=== PATIENT | female | born 1960 | race Caucasian/White ===

== ENCOUNTER → 2017-02-14 | Outpatient (CLI) | payer OTHER ==
[~2017-02-14] MED LIST: ANAPROX DS550 MG PO; BREO ELLIPTA 11 EACH INH; DARVOCET N 1001 TAB PO; FLEXERIL10 MG PO; MOTRIN800 MG PO; NAPROSYN500 MG PO; OXYGEN NAS; PREDNICOT20 MG PO; PREDNISONE10 MG PO; PREMPRO 0.45 MG1 TAB PO; PROAIR HFA0.09 MG/AC IH; QVAR0.08 MG/AC INH; SEROQUEL25 MG PO; TEMAZEPAM15 M1 PO; VENTOLIN0.09 MG/AC IH; VICODIN 5-3001 EACH PO; VICODIN 5/500 505 MG PO; VOLTAREN1% TP; Vicodin 5/500 505 MG PO; WELLBUTRIN XL150 MG PO; XANAX0.5 MG PO; ZITHROMAX500 MG PO
[2017-02-14 10:38] LABS: BASO # 0.1 10*3/uL (0.0-0.1); BASO % 0.6 % (0.0-1.0); EOS # 0.3 10*3/uL (0.0-0.4); EOS % 2.9 % (1.0-4.0); HEMOGLOBIN 14.1 g/dl (12.0-16.0); LYMPH % 21.9 % (27.0-41.0); MEAN CELL VOLUME 98.6 fl (81.0-99.0); MEAN CORPUSCULAR HGB 32.3 pg (27.0-31.0); MEAN CORPUSCULAR HGB CONC 32.8 g/dl (33.0-37.0); MEAN PLATELET VOLUME 9.2 fl (9.6-12.3); MONO # 0.7 10*3/uL (0.1-1.0); MONO % 7.6 % (3.0-9.0); NEUT % 66.8 % (47.0-73.0); PLATELET COUNT AUTOMATED 293 10*3/uL (130-400); RED BLOOD COUNT 4.36 10*6/uL (4.10-5.10); WHITE BLOOD COUNT 8.9 10*3/uL (4.8-10.8)
[2017-02-14 11:01] LABS: BUN 14 mg/dl (7-24); CARBON DIOXIDE 30 mmol/L (21-32); CHLORIDE 106 mmol/L (98-107); EST GLOM FILT AFRICAN AMERICAN > 60 ml/min; GLUCOSE 91 mg/dL (65-99); SODIUM 140 mmol/L (136-145)
== END | disposition home or self-care (01) ==
LOC: LAB 09:20
PROVIDERS: Orthopaedic Surgery
DX: Z01.818 Encounter for other preprocedural examination (principal); G56.01 Carpal tunnel syndrome, right upper limb; J44.9 Chronic obstructive pulmonary disease, unspecified

== ENCOUNTER → 2017-02-20 | Day surgery (SDC) | payer OTHER ==
[~2017-02-20] VITALS: Ht 162.5 cm; Wt 93.0 kg
[~2017-02-20] MED LIST changes: +NORCO 5-325 TA1 EACH PO; +ZOFRAN4 MG PO
--- NOTE | ~2017-02-20 | O ---
[place], [place] OPERATIVE NOTE NAME: [facility]AP[facility] SKELTON [id number] UNIT #: [id number] ROOM: DOCTOR: TORIBIO LEXIE BIRTHDATE: [birth year] DOS: 02/20/2017 PREOPERATIVE DIAGNOSIS: Right carpal tunnel syndrome. POSTOPERATIVE DIAGNOSIS: Right carpal tunnel syndrome. PROCEDURE: Right carpal tunnel release. SURGEON: Dr. Ray. CREAM RIPENER: Roxy. ANESTHESIA: OUMAR Forte. INDICATIONS: The patient is a 56-year-old female with a history of pain and numbness and tingling in the right wrist and hand. The risks and benefits of the procedure were explained to the patient preoperatively. Preoperative labs and x-rays were obtained including a preoperative nerve conduction study. DESCRIPTION OF PROCEDURE: The right hand was marked in the preoperative region. The patient was brought to the operative suite. Timeout was performed. General anesthetic with LMA intubation was performed. Right upper extremity was prepped and draped in the usual orthopedic manner. Extremity was elevated and the tourniquet was inflated to 250 mmHg. The incision was planned between Santana's cardinal line and the distal wrist crease along the fourth ray. The area was injected with Marcaine 0.5% plain. The incision was made sharply with a scalpel. Subcutaneous tissue was spread down to the level of the volar carpal ligament. Under loupe magnification, the volar carpal ligament was divided in a longitudinal fashion. Self-retraining retractors were utilized. The median nerve was identified and followed both proximally and distally. Any further entrapment was released with Clarkia scissors. The floor of the carpal canal was palpated. There was no gross bony abnormalities. There was noted to be a slight hourglass configuration of the median nerve and significant tenosynovitis about the flexor tendons. When no further entrapment was noted, the area was copiously irrigated with normal saline. The wound was closed with 4-0 Prolene in a horizontal mattress suture fashion. The incision was again injected with Marcaine 0.5% plain. Xeroform, 4 x 4's, cast padding and a small volar wrist splint and an Trung bandage were applied. The tourniquet was released. The anesthetic was reversed. The patient was extubated and taken to recovery room in satisfactory condition. Sponge and needle count correct. ESTIMATED BLOOD LOSS: None. DRAINS: None. SPECIMENS: None. PACKING: None. [place], [place] OPERATIVE NOTE NAME: SWAPNA SKELTON UNIT #: [id number] ROOM: DOCTOR: LEXIE RAY DO BIRTHDATE: [birth year] COMPLICATIONS: None. LEXIE RAY DO CM:OPRECORD:OPERATIVE NOTE 6 LEXIE RAY DO 02/20/1749 interface
[2017-02-20 07:00] VITALS: BP 140/69
[2017-02-20 08:25] VITALS: BP 107/38
[2017-02-20 08:40] VITALS: BP 102/43
[2017-02-20 08:55] VITALS: BP 100/52
[2017-02-20 09:10] VITALS: BP 101/50
[2017-02-20 09:25] VITALS: BP 105/55
== END | disposition home or self-care (01) ==
LOC: SDC 02-14 09:30
DX: G56.01 Carpal tunnel syndrome, right upper limb (principal); I25.2 Old myocardial infarction; J45.909 Unspecified asthma, uncomplicated; J43.9 Emphysema, unspecified; F41.9 Anxiety disorder, unspecified; F32.9 Major depressive disorder, single episode, unspecified; Z87.01 Personal history of pneumonia (recurrent); Z87.891 Personal history of nicotine dependence; Z82.49 Family history of ischemic heart disease and other diseases of the circulatory system

== ENCOUNTER 2017-03-18 18:11 | Emergency (ER) | payer OTHER ==
[~2017-03-18] VITALS: Ht 162.5 cm; Wt 90.7 kg
[2017-03-18 18:21] VITALS: BP 134/97
[2017-03-18] MEDS ORDERED: CEPHALEXIN500 M1 PO (19:25)
== END 2017-03-18 19:27 | disposition home or self-care (01) ==
LOC: ED 18:11
DX: S61.411A Laceration without foreign body of right hand, initial encounter (principal); F17.200 Nicotine dependence, unspecified, uncomplicated; Z29.12 Encounter for prophylactic antivenin; Z79.899 Other long term (current) drug therapy; W25.XXXA Contact with sharp glass, initial encounter; Y93.89 Activity, other specified; Y92.89 Other specified places as the place of occurrence of the external cause; Y99.8 Other external cause status

== ENCOUNTER → 2017-04-09 | Outpatient (CLI) | payer OTHER ==
[~2017-04-09] MED LIST changes: +CEPHALEXIN500 M1 PO
== END | disposition home or self-care (01) ==
LOC: RAD 10:39
DX: M25.551 Pain in right hip (principal); M25.552 Pain in left hip; M54.42 Lumbago with sciatica, left side; M54.41 Lumbago with sciatica, right side; M53.3 Sacrococcygeal disorders, not elsewhere classified

== ENCOUNTER → 2017-05-13 | Outpatient (CLI) | payer OTHER | END | disposition home or self-care (01) | LOC: MRI 14:56 | DX: M48.02 Spinal stenosis, cervical region (principal); M47.896 Other spondylosis, lumbar region ==

== ENCOUNTER → 2019-03-18 | Outpatient (CLI) | payer OTHER ==
[2019-03-18 14:12] LABS: HEMATOCRIT 43.3 % (37.0-47.0); HEMOGLOBIN 13.6 g/dl (12.0-16.0); MEAN CELL VOLUME 101.9 fl (81.0-99.0); MEAN CORPUSCULAR HGB CONC 31.4 g/dl (33.0-37.0); MEAN PLATELET VOLUME 8.8 fl (9.6-12.3); RED BLOOD COUNT 4.25 10*6/uL (4.10-5.10); RED CELL DISTRI WIDTH 13.2 % (0-14.5); WHITE BLOOD COUNT 10.1 10*3/uL (4.8-10.8)
[2019-03-18 14:42] LABS: ALBUMIN 3.4 gm/dl (3.1-4.5); ALKALINE PHOSPHATASE 85 U/L (45-117); BUN 10 mg/dl (7-24); CHLORIDE 99 mmol/L (98-107); CHOLESTEROL 186 mg/dL (<200); CREATININE 1.01 mg/dL (0.55-1.02); HDL CHOLESTEROL 42 mg/dl (40-60); LDL CHOLESTEROL 121 mg/dL (9-159); SGOT/AST 21 IU/L (3-35); SGPT/ALT 24 U/L (12-78); SODIUM 138 mmol/L (136-145); TOTAL PROTEIN 8.8 gm/dL (6.4-8.2); TRIGLYCERIDES 117 mg/dl (<150); VLDL CHOLESTEROL 23 mg/dL (6-40)
== END | disposition home or self-care (01) ==
LOC: LAB 13:50
PROVIDERS: Physician Assistant
DX: E87.0 Hyperosmolality and hypernatremia (principal); F31.11 Bipolar disorder, current episode manic without psychotic features, mild; J44.9 Chronic obstructive pulmonary disease, unspecified; M16.12 Unilateral primary osteoarthritis, left hip

== ENCOUNTER 2022-05-22 10:23 | Inpatient (IN) | payer OTHER ==
[~2022-05-22] VITALS: Ht 160 cm; Wt 130.6 kg
[2022-05-22 10:27] VITALS: BP 126/70
[2022-05-22 10:46] LABS: ABG BASE EXCESS 6.4 mmol/L (-2.0-2.0); ARTERIAL BLOOD GAS PH 7.283 (7.35-7.45); ARTERIAL BLOOD GAS PO2 153.3 (80-90)
[2022-05-22 10:59] LABS: BASO # 0.1 10*3/uL (0.0-0.1); BASO % 0.4 % (0.0-1.0); EOS # 0.2 10*3/uL (0.0-0.4); EOS % 1.4 % (1.0-4.0); LYMPH % 7.1 % (27.0-41.0); MEAN CELL VOLUME 104.6 fl (81.0-99.0); MEAN CORPUSCULAR HGB 31.6 pg (27.0-31.0); MEAN CORPUSCULAR HGB CONC 30.3 g/dl (33.0-37.0); MEAN PLATELET VOLUME 8.3 fl (9.6-12.3); MONO # 0.6 10*3/uL (0.1-1.0); MONO % 4.4 % (3.0-9.0); NEUT # 12.1 10*3/uL (2.3-7.9); NEUT % 86.4 % (47.0-73.0); PLATELET COUNT AUTOMATED 252 10*3/uL (130-400); RED BLOOD COUNT 3.73 10*6/uL (4.10-5.10); RED CELL DISTRI WIDTH 14.1 % (0-14.5)
[2022-05-22 11:17] LABS: ALKALINE PHOSPHATASE 82 U/L (45-117); BUN 7 mg/dl (7-24); CHLORIDE 94 mmol/L (98-107); CREATININE 0.68 mg/dL (0.55-1.02); POTASSIUM 4.2 mmol/L (3.5-5.1); SGOT/AST 11 IU/L (3-35); SGPT/ALT 19 U/L (12-78); SODIUM 135 mmol/L (136-145); TOTAL PROTEIN 8.2 gm/dL (6.4-8.2)
[2022-05-22 11:25] VITALS: BP 155/88
[2022-05-22 14:47] VITALS: BP 102/42
[2022-05-22 15:37] VITALS: BP 126/69
[2022-05-22 15:55] LABS: BILIRUBIN 2+ (Negative); BLOOD Negative (Negative); CLARITY Cloudy (Clear); COLOR Dark Yellow (Yellow); GLUCOSE Negative (Negative); KETONE 1+ (Negative); LEUKO ESTERASE Trace (Negative); NITRITE Negative (Negative); PH 5.5 (4.5-8.0)
[2022-05-22 16:03] LABS: BACTERIA 1+; MUCOUS 2+
[2022-05-22 16:04] LABS: FINE GRANULAR CAST 0-2
[2022-05-22] MEDS ORDERED: LOPRESSOR25 MG PO (17:27)
[2022-05-22] MEDS ORDERED: SYMB160 INH (17:28)
[2022-05-22] MEDS ORDERED: SPIRIVA -- 3018 MCG INH (17:28)
[2022-05-22] MEDS ORDERED: BUPRENORPHINE-1 EAC2 SL (17:30)
[2022-05-22 19:43] LABS: ABG BASE EXCESS 4.7 mmol/L (-2.0-2.0); ARTERIAL BLOOD GAS PH 7.275 (7.35-7.45)
[2022-05-22 20:00] VITALS: BP 158/69
[2022-05-23] VITALS: BP 114/58
[2022-05-23 04:00] VITALS: BP 122/69
[2022-05-23 05:44] LABS: BUN 9 mg/dl (7-24); CHLORIDE 97 mmol/L (98-107); CREATININE 0.61 mg/dL (0.55-1.02); POTASSIUM 4.5 mmol/L (3.5-5.1); SGOT/AST 14 IU/L (3-35); SGPT/ALT 17 U/L (12-78); SODIUM 138 mmol/L (136-145)
[2022-05-23 05:46] LABS: ALKALINE PHOSPHATASE 76 U/L (45-117); TOTAL PROTEIN 7.3 gm/dL (6.4-8.2)
[2022-05-23 06:16] LABS: HEMATOCRIT 35.2 % (37.0-47.0); MEAN CELL VOLUME 103.8 fl (81.0-99.0); MEAN CORPUSCULAR HGB 31.6 pg (27.0-31.0); MEAN CORPUSCULAR HGB CONC 30.4 g/dl (33.0-37.0); MEAN PLATELET VOLUME 9.2 fl (9.6-12.3); PLATELET COUNT AUTOMATED 257 10*3/uL (130-400); RED BLOOD COUNT 3.39 10*6/uL (4.10-5.10); RED CELL DISTRI WIDTH 13.8 % (0-14.5); WHITE BLOOD COUNT 16.5 10*3/uL (4.8-10.8)
[2022-05-23 06:21] LABS: MANUAL DIFF REFLEX YES
[2022-05-23 06:59] LABS: PLATELET SUFFICIENCY NORMAL (NORMAL); POLYCHROMASIA SLIGHT; STOMATOCYTE FEW; TOTAL CELLS COUNTED 100 #CELLS; TOXIC GRANULATION SLIGHT; VACUOLATION OF NEUTROPHILS SLIGHT
[2022-05-23 07:56] LABS: ABG BASE EXCESS 12.6 mmol/L (-2.0-2.0); ARTERIAL BLOOD GAS PH 7.289 (7.35-7.45); ARTERIAL BLOOD GAS PO2 66.6 (80-90)
[2022-05-23 08:00] VITALS: BP 123/75
[2022-05-23 12:00] VITALS: BP 114/70
[2022-05-23 16:00] VITALS: BP 111/55
[2022-05-23 20:00] VITALS: BP 129/98
[2022-05-24] VITALS: BP 91/53
[2022-05-24 04:00] VITALS: BP 104/64
[2022-05-24 05:43] LABS: BUN 14 mg/dl (7-24); CHLORIDE 99 mmol/L (98-107); CREATININE 0.59 mg/dL (0.55-1.02); POTASSIUM 4.8 mmol/L (3.5-5.1); SODIUM 140 mmol/L (136-145)
[2022-05-24 06:22] LABS: HEMATOCRIT 34.5 % (37.0-47.0); MEAN CELL VOLUME 104.9 fl (81.0-99.0); MEAN CORPUSCULAR HGB 31.3 pg (27.0-31.0); MEAN CORPUSCULAR HGB CONC 29.9 g/dl (33.0-37.0); MEAN PLATELET VOLUME 8.8 fl (9.6-12.3); PLATELET COUNT AUTOMATED 275 10*3/uL (130-400); RED BLOOD COUNT 3.29 10*6/uL (4.10-5.10); RED CELL DISTRI WIDTH 13.6 % (0-14.5)
[2022-05-24 06:30] LABS: MANUAL DIFF REFLEX YES
[2022-05-24 07:17] LABS: TOTAL CELLS COUNTED 100 #CELLS
[2022-05-24 07:18] LABS: PLATELET SUFFICIENCY NORMAL (NORMAL); POLYCHROMASIA SLIGHT; TOXIC GRANULATION SLIGHT; VACUOLATION OF NEUTROPHILS SLIGHT
[2022-05-24 07:43] LABS: ABG BASE EXCESS 9.8 mmol/L (-2.0-2.0); ARTERIAL BLOOD GAS PH 7.352 (7.35-7.45); ARTERIAL BLOOD GAS PO2 73.4 (80-90)
[2022-05-24 08:00] VITALS: BP 116/59
[2022-05-24 12:00] VITALS: BP 121/65
[2022-05-24 16:00] VITALS: BP 137/78
[2022-05-24 20:00] VITALS: BP 134/74
[2022-05-25] VITALS: BP 155/61
[2022-05-25 04:00] VITALS: BP 153/79
[2022-05-25 08:00] VITALS: BP 125/71
[2022-05-25 12:00] VITALS: BP 124/67
[2022-05-25 16:00] VITALS: BP 133/66
[2022-05-25 20:00] VITALS: BP 159/85
[2022-05-26] VITALS: BP 132/64
[2022-05-26 04:00] VITALS: BP 133/72
[2022-05-26 06:12] LABS: BASO % 0.3 % (0.0-1.0); HEMATOCRIT 37.4 % (37.0-47.0); LYMPH # 0.6 10*3/uL (1.3-4.4); MEAN CELL VOLUME 103.3 fl (81.0-99.0); MEAN CORPUSCULAR HGB 31.2 pg (27.0-31.0); MEAN CORPUSCULAR HGB CONC 30.2 g/dl (33.0-37.0); MEAN PLATELET VOLUME 8.7 fl (9.6-12.3); MONO # 0.3 10*3/uL (0.1-1.0); MONO % 3.9 % (3.0-9.0); NEUT # 6.8 10*3/uL (2.3-7.9); PLATELET COUNT AUTOMATED 282 10*3/uL (130-400); RED BLOOD COUNT 3.62 10*6/uL (4.10-5.10); RED CELL DISTRI WIDTH 13.6 % (0-14.5); WHITE BLOOD COUNT 7.8 10*3/uL (4.8-10.8)
[2022-05-26 06:22] LABS: BUN 17 mg/dl (7-24); CHLORIDE 95 mmol/L (98-107); CREATININE 0.63 mg/dL (0.55-1.02); POTASSIUM 4.6 mmol/L (3.5-5.1); SODIUM 139 mmol/L (136-145)
[2022-05-26 08:00] VITALS: BP 149/87
[2022-05-26 08:14] LABS: ABG BASE EXCESS 15.1 mmol/L (-2.0-2.0); ARTERIAL BLOOD GAS PH 7.348 (7.35-7.45); ARTERIAL BLOOD GAS PO2 91.7 (80-90)
[2022-05-26 12:00] VITALS: BP 117/75
[2022-05-26 16:00] VITALS: BP 142/84
[2022-05-26 20:00] VITALS: BP 122/83
[2022-05-27] VITALS: BP 124/73
[2022-05-27 04:00] VITALS: BP 148/74
[2022-05-27 04:38] LABS: BASO % 0.2 % (0.0-1.0); HEMATOCRIT 37.8 % (37.0-47.0); LYMPH # 0.6 10*3/uL (1.3-4.4); LYMPH % 6.4 % (27.0-41.0); MEAN CELL VOLUME 104.4 fl (81.0-99.0); MEAN CORPUSCULAR HGB 31.8 pg (27.0-31.0); MEAN CORPUSCULAR HGB CONC 30.4 g/dl (33.0-37.0); MEAN PLATELET VOLUME 8.3 fl (9.6-12.3); MONO # 0.3 10*3/uL (0.1-1.0); MONO % 3.4 % (3.0-9.0); NEUT # 7.9 10*3/uL (2.3-7.9); NEUT % 88.8 % (47.0-73.0); PLATELET COUNT AUTOMATED 222 10*3/uL (130-400); RED BLOOD COUNT 3.62 10*6/uL (4.10-5.10); RED CELL DISTRI WIDTH 14.2 % (0-14.5); WHITE BLOOD COUNT 8.9 10*3/uL (4.8-10.8)
[2022-05-27 04:51] LABS: BUN 20 mg/dl (7-24); CHLORIDE 97 mmol/L (98-107); CREATININE 0.65 mg/dL (0.55-1.02); POTASSIUM 4.8 mmol/L (3.5-5.1); SODIUM 139 mmol/L (136-145)
[2022-05-27 07:44] LABS: ABG BASE EXCESS 7.1 mmol/L (-2.0-2.0); ARTERIAL BLOOD GAS PH 7.287 (7.35-7.45); ARTERIAL BLOOD GAS PO2 85.7 (80-90)
[2022-05-27 08:00] VITALS: BP 117/89
[2022-05-27 12:00] VITALS: BP 127/79
[2022-05-27 16:00] VITALS: BP 136/69
[2022-05-27 20:00] VITALS: BP 147/65
[2022-05-28] VITALS: BP 107/52
[2022-05-28 06:15] LABS: BASO % 0.2 % (0.0-1.0); EOS % 0.3 % (1.0-4.0); HEMATOCRIT 38.9 % (37.0-47.0); LYMPH # 1.5 10*3/uL (1.3-4.4); LYMPH % 13.5 % (27.0-41.0); MEAN CELL VOLUME 104.6 fl (81.0-99.0); MEAN CORPUSCULAR HGB CONC 29.8 g/dl (33.0-37.0); MEAN PLATELET VOLUME 8.7 fl (9.6-12.3); MONO # 0.9 10*3/uL (0.1-1.0); MONO % 8.4 % (3.0-9.0); NEUT # 8.4 10*3/uL (2.3-7.9); NEUT % 76.7 % (47.0-73.0); PLATELET COUNT AUTOMATED 226 10*3/uL (130-400); RED BLOOD COUNT 3.72 10*6/uL (4.10-5.10); RED CELL DISTRI WIDTH 13.7 % (0-14.5); WHITE BLOOD COUNT 10.9 10*3/uL (4.8-10.8)
[2022-05-28 06:33] LABS: BUN 25 mg/dl (7-24); CHLORIDE 98 mmol/L (98-107); CREATININE 0.75 mg/dL (0.55-1.02); SODIUM 139 mmol/L (136-145)
[2022-05-28 06:35] LABS: POTASSIUM 3.8 mmol/L (3.5-5.1)
[2022-05-28 06:51] LABS: MEAN CORPUSCULAR HGB 31.2 pg (27.0-31.0)
[2022-05-28 08:00] VITALS: BP 107/55
[2022-05-28 08:08] LABS: ABG BASE EXCESS 8.5 mmol/L (-2.0-2.0); ARTERIAL BLOOD GAS PH 7.277 (7.35-7.45); ARTERIAL BLOOD GAS PO2 63.9 (80-90)
[2022-05-28 12:00] VITALS: BP 123/94
[2022-05-28 15:30] LABS: ABG BASE EXCESS 7.6 mmol/L (-2.0-2.0); ARTERIAL BLOOD GAS PH 7.241 (7.35-7.45); ARTERIAL BLOOD GAS PO2 89.2 (80-90)
[2022-05-28 16:00] VITALS: BP 114/59
[2022-05-28 20:00] VITALS: BP 124/65
[2022-05-29] VITALS: BP 124/58
[2022-05-29 06:32] LABS: BASO % 0.1 % (0.0-1.0); EOS # 0.1 10*3/uL (0.0-0.4); EOS % 0.4 % (1.0-4.0); HEMATOCRIT 40.1 % (37.0-47.0); LYMPH # 1.4 10*3/uL (1.3-4.4); LYMPH % 10.5 % (27.0-41.0); MEAN CELL VOLUME 105.2 fl (81.0-99.0); MEAN CORPUSCULAR HGB 31.2 pg (27.0-31.0); MEAN CORPUSCULAR HGB CONC 29.7 g/dl (33.0-37.0); MEAN PLATELET VOLUME 8.9 fl (9.6-12.3); MONO # 0.8 10*3/uL (0.1-1.0); MONO % 6.2 % (3.0-9.0); NEUT # 11.1 10*3/uL (2.3-7.9); PLATELET COUNT AUTOMATED 214 10*3/uL (130-400); RED BLOOD COUNT 3.81 10*6/uL (4.10-5.10); RED CELL DISTRI WIDTH 13.8 % (0-14.5); WHITE BLOOD COUNT 13.6 10*3/uL (4.8-10.8)
[2022-05-29 06:46] LABS: BUN 21 mg/dl (7-24); CHLORIDE 99 mmol/L (98-107); POTASSIUM 4.3 mmol/L (3.5-5.1); SODIUM 140 mmol/L (136-145)
[2022-05-29 08:00] VITALS: BP 118/60
[2022-05-29 09:56] LABS: ABG BASE EXCESS 9.2 mmol/L (-2.0-2.0); ARTERIAL BLOOD GAS PH 7.279 (7.35-7.45); ARTERIAL BLOOD GAS PO2 64.4 (80-90)
[2022-05-29 12:00] VITALS: BP 120/55
[2022-05-29 16:00] VITALS: BP 122/49
[2022-05-29 20:00] VITALS: BP 123/50
[2022-05-30] VITALS: BP 116/62
[2022-05-30 06:15] LABS: HEMATOCRIT 37.4 % (37.0-47.0); MEAN CELL VOLUME 102.5 fl (81.0-99.0); MEAN CORPUSCULAR HGB 31.2 pg (27.0-31.0); MEAN CORPUSCULAR HGB CONC 30.5 g/dl (33.0-37.0); MEAN PLATELET VOLUME 9.3 fl (9.6-12.3); PLATELET COUNT AUTOMATED 206 10*3/uL (130-400); RED BLOOD COUNT 3.65 10*6/uL (4.10-5.10); RED CELL DISTRI WIDTH 13.7 % (0-14.5); WHITE BLOOD COUNT 12.4 10*3/uL (4.8-10.8)
[2022-05-30 06:19] LABS: MANUAL DIFF REFLEX YES
[2022-05-30 06:35] LABS: BUN 18 mg/dl (7-24); CHLORIDE 97 mmol/L (98-107); CREATININE 0.67 mg/dL (0.55-1.02); POTASSIUM 4.5 mmol/L (3.5-5.1); SODIUM 136 mmol/L (136-145)
[2022-05-30 06:54] LABS: OVALOCYTES FEW; PLATELET SUFFICIENCY NORMAL (NORMAL); POLYCHROMASIA SLIGHT; STOMATOCYTE FEW; TOTAL CELLS COUNTED 100 #CELLS; TOXIC GRANULATION SLIGHT
[2022-05-30 08:00] VITALS: BP 123/41
[2022-05-30 12:00] VITALS: BP 123/58
[2022-05-30 16:00] VITALS: BP 137/65
[2022-05-30 20:00] VITALS: BP 148/78
[2022-05-31] VITALS: BP 114/48
[2022-05-31 00:45] VITALS: BP 114/48
[2022-05-31 06:16] LABS: BASO % 0.1 % (0.0-1.0); HEMATOCRIT 38.9 % (37.0-47.0); LYMPH # 0.5 10*3/uL (1.3-4.4); LYMPH % 4.7 % (27.0-41.0); MEAN CELL VOLUME 102.6 fl (81.0-99.0); MEAN CORPUSCULAR HGB 31.4 pg (27.0-31.0); MEAN CORPUSCULAR HGB CONC 30.6 g/dl (33.0-37.0); MEAN PLATELET VOLUME 9.3 fl (9.6-12.3); MONO # 0.5 10*3/uL (0.1-1.0); MONO % 5.3 % (3.0-9.0); NEUT # 9.1 10*3/uL (2.3-7.9); NEUT % 88.9 % (47.0-73.0); PLATELET COUNT AUTOMATED 202 10*3/uL (130-400); RED BLOOD COUNT 3.79 10*6/uL (4.10-5.10); RED CELL DISTRI WIDTH 13.8 % (0-14.5); WHITE BLOOD COUNT 10.2 10*3/uL (4.8-10.8)
[2022-05-31 06:28] LABS: BUN 20 mg/dl (7-24); CHLORIDE 98 mmol/L (98-107); CREATININE 0.67 mg/dL (0.55-1.02); SODIUM 137 mmol/L (136-145)
[2022-05-31 08:00] VITALS: BP 127/50
[2022-05-31 12:00] VITALS: BP 163/84
[2022-05-31 16:00] VITALS: BP 133/61
[2022-05-31 20:00] VITALS: BP 134/77
[2022-06-01] VITALS: BP 125/78
[2022-06-01 08:00] VITALS: BP 139/78
[2022-06-01 12:00] VITALS: BP 120/65
[2022-06-01 16:00] VITALS: BP 121/58
[2022-06-01 20:00] VITALS: BP 134/65
[2022-06-02] VITALS: BP 139/66
[2022-06-02 06:16] LABS: HEMATOCRIT 38.9 % (37.0-47.0); MEAN CELL VOLUME 102.4 fl (81.0-99.0); MEAN CORPUSCULAR HGB 31.1 pg (27.0-31.0); MEAN CORPUSCULAR HGB CONC 30.3 g/dl (33.0-37.0); MEAN PLATELET VOLUME 9.4 fl (9.6-12.3); PLATELET COUNT AUTOMATED 220 10*3/uL (130-400); RED CELL DISTRI WIDTH 13.7 % (0-14.5); WHITE BLOOD COUNT 11.3 10*3/uL (4.8-10.8)
[2022-06-02 06:17] LABS: MANUAL DIFF REFLEX YES
[2022-06-02 06:18] LABS: BUN 16 mg/dl (7-24); CHLORIDE 97 mmol/L (98-107); CREATININE 0.67 mg/dL (0.55-1.02); POTASSIUM 4.2 mmol/L (3.5-5.1); SODIUM 140 mmol/L (136-145)
[2022-06-02 07:00] LABS: PLATELET SUFFICIENCY NORMAL (NORMAL); POLYCHROMASIA SLIGHT; STOMATOCYTE FEW; TOTAL CELLS COUNTED 100 #CELLS; TOXIC GRANULATION SLIGHT
[2022-06-02 08:00] VITALS: BP 133/56
[2022-06-02 08:58] LABS: ABG BASE EXCESS 10.1 mmol/L (-2.0-2.0); ARTERIAL BLOOD GAS PH 7.374 (7.35-7.45); ARTERIAL BLOOD GAS PO2 57.3 (80-90)
[2022-06-02 12:00] VITALS: BP 136/54
[2022-06-02 16:00] VITALS: BP 155/66
[2022-06-02 20:00] VITALS: BP 146/56
[2022-06-03] VITALS: BP 126/64
[2022-06-03 07:29] LABS: BASO % 0.2 % (0.0-1.0); HEMATOCRIT 42.3 % (37.0-47.0); LYMPH # 0.9 10*3/uL (1.3-4.4); LYMPH % 7.3 % (27.0-41.0); MEAN CELL VOLUME 102.2 fl (81.0-99.0); MEAN CORPUSCULAR HGB 31.4 pg (27.0-31.0); MEAN CORPUSCULAR HGB CONC 30.7 g/dl (33.0-37.0); MONO # 0.9 10*3/uL (0.1-1.0); MONO % 6.9 % (3.0-9.0); NEUT # 10.9 10*3/uL (2.3-7.9); PLATELET COUNT AUTOMATED 262 10*3/uL (130-400); RED BLOOD COUNT 4.14 10*6/uL (4.10-5.10); RED CELL DISTRI WIDTH 13.8 % (0-14.5); WHITE BLOOD COUNT 12.8 10*3/uL (4.8-10.8)
[2022-06-03 07:45] LABS: BUN 14 mg/dl (7-24); CHLORIDE 97 mmol/L (98-107); CREATININE 0.73 mg/dL (0.55-1.02); POTASSIUM 3.9 mmol/L (3.5-5.1); SODIUM 137 mmol/L (136-145)
[2022-06-03 08:00] VITALS: BP 143/73
[2022-06-03 12:00] VITALS: BP 134/53
[2022-06-03 16:00] VITALS: BP 127/48
[2022-06-03 20:00] VITALS: BP 168/77
[2022-06-04] VITALS: BP 135/67
[2022-06-04 06:49] LABS: BASO % 0.1 % (0.0-1.0); EOS % 0.2 % (1.0-4.0); HEMATOCRIT 40.8 % (37.0-47.0); LYMPH # 1.5 10*3/uL (1.3-4.4); LYMPH % 13.7 % (27.0-41.0); MEAN CELL VOLUME 104.6 fl (81.0-99.0); MEAN CORPUSCULAR HGB CONC 29.7 g/dl (33.0-37.0); MONO % 9.3 % (3.0-9.0); NEUT # 8.5 10*3/uL (2.3-7.9); NEUT % 75.9 % (47.0-73.0); PLATELET COUNT AUTOMATED 236 10*3/uL (130-400); RED CELL DISTRI WIDTH 13.9 % (0-14.5); WHITE BLOOD COUNT 11.1 10*3/uL (4.8-10.8)
[2022-06-04 07:00] LABS: BUN 15 mg/dl (7-24); CHLORIDE 97 mmol/L (98-107); CREATININE 0.71 mg/dL (0.55-1.02); POTASSIUM 3.8 mmol/L (3.5-5.1); SODIUM 142 mmol/L (136-145)
[2022-06-04 08:00] VITALS: BP 116/63
[2022-06-04 12:00] VITALS: BP 128/58
[2022-06-04 16:00] VITALS: BP 107/56
[2022-06-04 20:00] VITALS: BP 139/73
[2022-06-05] VITALS: BP 95/42
[2022-06-05 00:45] VITALS: BP 114/48
[2022-06-05 06:02] LABS: BUN 15 mg/dl (7-24); CHLORIDE 100 mmol/L (98-107); CREATININE 0.61 mg/dL (0.55-1.02); POTASSIUM 4.5 mmol/L (3.5-5.1); SODIUM 140 mmol/L (136-145)
[2022-06-05 06:47] LABS: BASO % 0.1 % (0.0-1.0); EOS # 0.1 10*3/uL (0.0-0.4); EOS % 0.7 % (1.0-4.0); HEMATOCRIT 39.8 % (37.0-47.0); LYMPH # 1.4 10*3/uL (1.3-4.4); LYMPH % 12.4 % (27.0-41.0); MEAN CELL VOLUME 106.7 fl (81.0-99.0); MEAN CORPUSCULAR HGB 31.6 pg (27.0-31.0); MEAN CORPUSCULAR HGB CONC 29.6 g/dl (33.0-37.0); MEAN PLATELET VOLUME 9.4 fl (9.6-12.3); MONO # 1.1 10*3/uL (0.1-1.0); MONO % 9.6 % (3.0-9.0); NEUT # 8.9 10*3/uL (2.3-7.9); NEUT % 76.6 % (47.0-73.0); PLATELET COUNT AUTOMATED 226 10*3/uL (130-400); RED BLOOD COUNT 3.73 10*6/uL (4.10-5.10); WHITE BLOOD COUNT 11.6 10*3/uL (4.8-10.8)
[2022-06-05 08:00] VITALS: BP 144/40
[2022-06-05 12:00] VITALS: BP 157/80
[2022-06-05 15:49] VITALS: BP 120/89
[2022-06-05 20:00] VITALS: BP 112/89
[2022-06-06] VITALS: BP 130/59
[2022-06-06 06:01] LABS: BUN 16 mg/dl (7-24); CHLORIDE 97 mmol/L (98-107); CREATININE 0.62 mg/dL (0.55-1.02); POTASSIUM 3.7 mmol/L (3.5-5.1); SODIUM 139 mmol/L (136-145)
[2022-06-06 06:15] LABS: BASO % 0.1 % (0.0-1.0); EOS # 0.1 10*3/uL (0.0-0.4); EOS % 0.8 % (1.0-4.0); LYMPH # 1.7 10*3/uL (1.3-4.4); LYMPH % 13.4 % (27.0-41.0); MEAN CELL VOLUME 104.7 fl (81.0-99.0); MEAN CORPUSCULAR HGB 31.4 pg (27.0-31.0); MEAN PLATELET VOLUME 9.4 fl (9.6-12.3); MONO # 1.2 10*3/uL (0.1-1.0); MONO % 9.5 % (3.0-9.0); NEUT # 9.4 10*3/uL (2.3-7.9); NEUT % 75.6 % (47.0-73.0); PLATELET COUNT AUTOMATED 229 10*3/uL (130-400); RED BLOOD COUNT 3.82 10*6/uL (4.10-5.10); WHITE BLOOD COUNT 12.4 10*3/uL (4.8-10.8)
[2022-06-06 07:00] VITALS: BP 122/89
[2022-06-06 12:00] VITALS: BP 123/86
[2022-06-06] MEDS ORDERED: PREDNISONE10 MG PO (12:52)
== END 2022-06-06 14:48 | disposition home or self-care (01) | DRG 720 ==
LOC: ED 10:23 → EDHOLD 11:37 → ICCU 11:37 → EDHOLD 12:34 → ICCU 15:57 → 5E 05-27 15:40
PROVIDERS: Emergency Medicine; Internal Medicine; Internal Medicine Critical Care Medicine; Student in an Organized Health Care Education/Training Program; ADMIT Student in an Organized Health Care Education/Training Program; ATTEND Student in an Organized Health Care Education/Training Program
PROC: 5A0935A Assistance with Respiratory Ventilation, Less than 24 Consecutive Hours, High Flow/Velocity Cannula (ICD-10-PCS; principal; 2022-05-22)
PROC: 5A09357 Assistance with Respiratory Ventilation, Less than 24 Consecutive Hours, Continuous Positive Airway Pressure (ICD-10-PCS; 2022-05-22)
PROC: 5A09357 Assistance with Respiratory Ventilation, Less than 24 Consecutive Hours, Continuous Positive Airway Pressure (ICD-10-PCS; 2022-05-23)
PROC: 5A09357 Assistance with Respiratory Ventilation, Less than 24 Consecutive Hours, Continuous Positive Airway Pressure (ICD-10-PCS; 2022-05-24)
PROC: 5A0935A Assistance with Respiratory Ventilation, Less than 24 Consecutive Hours, High Flow/Velocity Cannula (ICD-10-PCS; 2022-05-27)
PROC: 5A09357 Assistance with Respiratory Ventilation, Less than 24 Consecutive Hours, Continuous Positive Airway Pressure (ICD-10-PCS; 2022-05-27)
PROC: 5A09357 Assistance with Respiratory Ventilation, Less than 24 Consecutive Hours, Continuous Positive Airway Pressure (ICD-10-PCS; 2022-05-28)
PROC: 5A09357 Assistance with Respiratory Ventilation, Less than 24 Consecutive Hours, Continuous Positive Airway Pressure (ICD-10-PCS; 2022-05-29)
PROC: 5A0945A Assistance with Respiratory Ventilation, 24-96 Consecutive Hours, High Flow/Velocity Cannula (ICD-10-PCS; 2022-05-30)
PROC: 5A09357 Assistance with Respiratory Ventilation, Less than 24 Consecutive Hours, Continuous Positive Airway Pressure (ICD-10-PCS; 2022-05-30)
PROC: 5A0945A Assistance with Respiratory Ventilation, 24-96 Consecutive Hours, High Flow/Velocity Cannula (ICD-10-PCS; 2022-06-02)
PROC: 5A0935A Assistance with Respiratory Ventilation, Less than 24 Consecutive Hours, High Flow/Velocity Cannula (ICD-10-PCS; 2022-06-05)
DX: A41.9 Sepsis, unspecified organism (principal); J18.9 Pneumonia, unspecified organism; E87.3 Alkalosis; J44.1 Chronic obstructive pulmonary disease with (acute) exacerbation; G93.41 Metabolic encephalopathy; E87.2 Acidosis; E87.1 Hypo-osmolality and hyponatremia; E43 Unspecified severe protein-calorie malnutrition; Z20.822 Contact with and (suspected) exposure to COVID-19; F41.9 Anxiety disorder, unspecified; G89.29 Other chronic pain; M54.9 Dorsalgia, unspecified; D75.89 Other specified diseases of blood and blood-forming organs; D53.9 Nutritional anemia, unspecified; R73.9 Hyperglycemia, unspecified; F11.90 Opioid use, unspecified, uncomplicated; R65.20 Severe sepsis without septic shock; F32.9 Major depressive disorder, single episode, unspecified; R31.9 Hematuria, unspecified; J96.21 Acute and chronic respiratory failure with hypoxia; J44.0 Chronic obstructive pulmonary disease with (acute) lower respiratory infection; J96.22 Acute and chronic respiratory failure with hypercapnia; E66.01 Morbid (severe) obesity due to excess calories; E83.41 Hypermagnesemia; G47.33 Obstructive sleep apnea (adult) (pediatric); Z68.43 Body mass index [BMI] 50.0-59.9, adult; Z87.891 Personal history of nicotine dependence; Z82.49 Family history of ischemic heart disease and other diseases of the circulatory system; Z83.6 Family history of other diseases of the respiratory system; Z83.3 Family history of diabetes mellitus

== ENCOUNTER 2024-03-31 14:44 | Inpatient (IN) | payer OTHER, MEDICAID ==
[~2024-03-31] VITALS: Ht 160 cm; Wt 129.7 kg
[~2024-03-31 14:44] MED LIST changes: +BUPRENORPHINE-1 EAC2 SL; +LOPRESSOR25 MG PO; +SPIRIVA -- 3018 MCG INH; +SYMB160 INH
[2024-03-31 15:00] VITALS: BP 141/66
[2024-03-31 15:45] LABS: BASO % 0.4 % (0.0-1.0); EOS # 0.1 10*3/uL (0.0-0.4); EOS % 1.2 % (1.0-4.0); LYMPH # 0.9 10*3/uL (1.3-4.4); LYMPH % 9.2 % (27.0-41.0); MEAN CELL VOLUME 101.3 fl (81.0-99.0); MEAN CORPUSCULAR HGB 30.9 pg (27.0-31.0); MEAN CORPUSCULAR HGB CONC 30.5 g/dl (33.0-37.0); MEAN PLATELET VOLUME 8.3 fl (9.6-12.3); MONO # 0.4 10*3/uL (0.1-1.0); MONO % 4.1 % (3.0-9.0); NEUT # 8.6 10*3/uL (2.3-7.9); NEUT % 84.9 % (47.0-73.0); PLATELET COUNT AUTOMATED 239 10*3/uL (130-400); RED BLOOD COUNT 3.85 10*6/uL (4.10-5.10); RED CELL DISTRI WIDTH 13.2 % (0-14.5); WHITE BLOOD COUNT 10.1 10*3/uL (4.8-10.8)
[2024-03-31 16:07] LABS: ALKALINE PHOSPHATASE 110 U/L (46-116); BUN 7 mg/dl (9-23); CHLORIDE 97 mmol/L (98-107); POTASSIUM 3.3 mmol/L (3.4-5.1); SGPT/ALT 14 U/L (5-49); TOTAL PROTEIN 8.3 gm/dL (6.0-8.0)
[2024-03-31 16:13] LABS: ACT PARTIAL THROMBO TIME 27.1 SECONDS (20.0-32.1)
[2024-03-31] MEDS ORDERED: SUBOXONE 8 MG-1 EACH BC (16:56)
[2024-03-31] MEDS ORDERED: DULE1ARO1 INH (16:56)
[2024-03-31] MEDS ORDERED: VENT7GM INH (16:56)
[2024-03-31] MEDS ORDERED: Ceftriaxone Sodium 1 GM/10 ML SYR IV ONE (17:00)
[2024-03-31] MEDS ORDERED: AZITHROMYCIN 250 ML IV ONE (17:00)
[2024-03-31] MEDS ORDERED: methylPREDNISolone sod succ 125 MG VIAL IV ONE (19:00)
[2024-03-31] MEDS ORDERED: POTASSIUM CHLORIDE 20 MEQ TAB PO ONE (19:05)
[2024-03-31] MEDS ORDERED: FUROSEMIDE 40 MG/4 ML VIAL IV ONE (19:05)
[2024-03-31 19:28] VITALS: BP 127/63
[2024-03-31] MEDS ORDERED: Acetaminophen/Hydrocodone 5 MG/325 MG TABLET PO PRN (19:35)
[2024-03-31] MEDS ORDERED: Ondansetron Hydrochloride 4 MG/2 ML VIAL IV PRN (19:35)
[2024-03-31] MEDS ORDERED: BISACODYL 10 MG SUPP R PRN (19:35)
[2024-03-31] MEDS ORDERED: ACETAMINOPHEN 650 MG SUPP R PRN (19:35)
[2024-03-31] MEDS ORDERED: Magnesium Hydroxide 30 ML UDC PO PRN (19:35)
[2024-03-31] MEDS ORDERED: BISACODYL 5 MG TAB PO PRN (19:35)
[2024-03-31] MEDS ORDERED: ACETAMINOPHEN 325 MG TAB PO PRN (19:35)
[2024-03-31] MEDS ORDERED: Levalbuterol Hydrochloride 0.63 MG VIAL NEB SCH (19:50)
[2024-03-31] MEDS ORDERED: ALPRAZolam 0.25 MG TAB PO PRN (20:50)
[2024-03-31] MEDS ORDERED: methylPREDNISolone sod succ 40 MG VIAL IV SCH (22:00)
[2024-03-31 22:01] LABS: ABG BASE EXCESS 8.9 mmol/L (-2.0-2.0); ARTERIAL BLOOD GAS PH 7.411 (7.35-7.45)
[2024-03-31 22:59] VITALS: BP 129/76
[2024-03-31] MEDS ORDERED: QUETIAPINE FUMARATE 50 MG TAB PO SCH (23:20)
[2024-04-01 05:07] VITALS: BP 120/79
[2024-04-01] MEDS ORDERED: FUROSEMIDE 40 MG/4 ML VIAL IV SCH (06:00)
[2024-04-01 07:44] LABS: BASO % 0.2 % (0.0-1.0); HEMATOCRIT 39.4 % (37.0-47.0); LYMPH # 0.6 10*3/uL (1.3-4.4); LYMPH % 9.7 % (27.0-41.0); MEAN CELL VOLUME 98.5 fl (81.0-99.0); MEAN CORPUSCULAR HGB CONC 31.5 g/dl (33.0-37.0); MEAN PLATELET VOLUME 8.8 fl (9.6-12.3); MONO % 0.5 % (3.0-9.0); NEUT # 5.6 10*3/uL (2.3-7.9); NEUT % 89.1 % (47.0-73.0); PLATELET COUNT AUTOMATED 282 10*3/uL (130-400); RED CELL DISTRI WIDTH 13.1 % (0-14.5); WHITE BLOOD COUNT 6.3 10*3/uL (4.8-10.8)
[2024-04-01 08:00] VITALS: BP 122/82
[2024-04-01 08:47] LABS: ALKALINE PHOSPHATASE 111 U/L (46-116); BUN 8 mg/dl (9-23); CHLORIDE 92 mmol/L (98-107); CHOLESTEROL 173 mg/dL (<200); LDL CHOLESTEROL 113 mg/dL (9-159); POTASSIUM 4.2 mmol/L (3.4-5.1); SGPT/ALT 14 U/L (5-49); TOTAL PROTEIN 8.5 gm/dL (6.0-8.0); TRIGLYCERIDES 43 mg/dl (<150)
[2024-04-01 09:39] LABS: VITAMIN D, 25-HYDROXY 8.5 ng/mL (30-100)
[2024-04-01] MEDS ORDERED: Enoxaparin Sodium 40 MG/0.4 ML SYR SC SCH (10:00)
[2024-04-01] MEDS ORDERED: SUBOXONE 8 MG PO SCH (10:00)
[2024-04-01] MEDS ORDERED: IOHEXOL 350 MG/ML 100 ML VIAL IV ONE (10:30)
[2024-04-01] MEDS ORDERED: SODIUM CHLORIDE 0.9% 100 ML BAG IV ONE (10:30)
[2024-04-01 12:00] VITALS: BP 132/72
[2024-04-01] MEDS ORDERED: ERGOCALCIFEROL 50,000 IU CAP (1.25 MG) PO ONE (13:40)
[2024-04-01] MEDS ORDERED: BUPRENORPHINE HCL/NALOXONE 8 MG-2 MG SL TABLET SL SCH (15:30)
[2024-04-01] MEDS ORDERED: Water, Sterile 10 ML VIAL ONE (15:56)
[2024-04-01 16:00] VITALS: BP 132/74
[2024-04-01] MEDS ORDERED: Ceftriaxone Sodium 1 GM in SYRINGE INFUSION 10 ML IV SCH (16:00)
[2024-04-01] MEDS ORDERED: Phosphorus/Potassium 1.45 GM PACKET PO SCH (16:30)
[2024-04-01] MEDS ORDERED: AZITHROMYCIN 250 ML IV SCH (17:00)
[2024-04-01 20:04] VITALS: BP 109/63
[2024-04-01] MEDS ORDERED: QUETIAPINE FUMARATE 25 MG TAB PO SCH (22:00)
[2024-04-01] MEDS ORDERED: QUETIAPINE FUMARATE 50 MG TAB ONE (22:11)
[2024-04-02] VITALS (7 sets, daily range): BP systolic 105–149; BP diastolic 44–94
[2024-04-02 06:12] LABS: HEMATOCRIT 39.6 % (37.0-47.0); MEAN CELL VOLUME 99.7 fl (81.0-99.0); MEAN CORPUSCULAR HGB CONC 31.1 g/dl (33.0-37.0); MEAN PLATELET VOLUME 9.1 fl (9.6-12.3); PLATELET COUNT AUTOMATED 295 10*3/uL (130-400); RED BLOOD COUNT 3.97 10*6/uL (4.10-5.10); RED CELL DISTRI WIDTH 13.2 % (0-14.5); WHITE BLOOD COUNT 8.5 10*3/uL (4.8-10.8)
[2024-04-02 06:14] LABS: MANUAL DIFF REFLEX YES
[2024-04-02 06:24] LABS: BUN 14 mg/dl (9-23); CHLORIDE 93 mmol/L (98-107); POTASSIUM 3.5 mmol/L (3.4-5.1)
[2024-04-02 07:17] LABS: BURR CELLS FEW; PLATELET SUFFICIENCY NORMAL (NORMAL); POLYCHROMASIA SLIGHT; TOTAL CELLS COUNTED 100 #CELLS; VACUOLATION OF NEUTROPHILS SLIGHT
[2024-04-02] MEDS ORDERED: FUROSEMIDE 40 MG/4 ML VIAL IV SCH (10:00)
[2024-04-03] VITALS: BP 147/76
[2024-04-03 06:57] LABS: BUN 19 mg/dl (9-23); CHLORIDE 91 mmol/L (98-107); POTASSIUM 3.3 mmol/L (3.4-5.1)
[2024-04-03 08:00] VITALS: BP 107/40
[2024-04-03] MEDS ORDERED: POTASSIUM CHLORIDE 20 MEQ TAB PO ONE (10:30)
[2024-04-03 12:00] VITALS: BP 107/40; BP 121/63
[2024-04-03 16:00] VITALS: BP 137/58
[2024-04-03 20:00] VITALS: BP 141/70
[2024-04-04] VITALS: BP 115/96
[2024-04-04 07:29] LABS: BUN 19 mg/dl (9-23); CHLORIDE 91 mmol/L (98-107); POTASSIUM 3.8 mmol/L (3.4-5.1)
[2024-04-04 08:00] VITALS: BP 127/62
[2024-04-04] MEDS ORDERED: FUROSEMIDE 40 MG TAB PO SCH (10:00)
[2024-04-04] MEDS ORDERED: Cholecalciferol 5,000 IU CAP (125 MCG) PO SCH (10:00)
[2024-04-04] MEDS ORDERED: BISMUTH SUBSALICYLATE 262 MG TAB PO PRN (11:30)
[2024-04-04 12:00] VITALS: BP 157/69
[2024-04-04] MEDS ORDERED: VITAMIN D3125 MC1 PO (14:11)
[2024-04-04] MEDS ORDERED: FUROSEMIDE40 MG PO (14:11)
[2024-04-04] MEDS ORDERED: VIBRAMYCIN HYC100 MG PO (14:11)
[2024-04-04] MEDS ORDERED: PREDNISONE10 MG PO (14:11)
== END 2024-04-04 16:59 | disposition home or self-care (01) | DRG 177 ==
LOC: ED 14:44 → EDHOLD 19:04 → 4E 19:04 → EDHOLD 04-01 05:10 → 4E 04-02 02:39
PROVIDERS: Internal Medicine; Internal Medicine Critical Care Medicine; Student in an Organized Health Care Education/Training Program; ADMIT Student in an Organized Health Care Education/Training Program; ATTEND Student in an Organized Health Care Education/Training Program
PROC: 5A09357 Assistance with Respiratory Ventilation, Less than 24 Consecutive Hours, Continuous Positive Airway Pressure (ICD-10-PCS; principal; 2024-04-01)
PROC: 5A09357 Assistance with Respiratory Ventilation, Less than 24 Consecutive Hours, Continuous Positive Airway Pressure (ICD-10-PCS; 2024-04-02)
DX: J15.69 Pneumonia due to other Gram-negative bacteria (principal); I50.33 Acute on chronic diastolic (congestive) heart failure; J96.21 Acute and chronic respiratory failure with hypoxia; J96.22 Acute and chronic respiratory failure with hypercapnia; E87.20 Acidosis, unspecified; J44.1 Chronic obstructive pulmonary disease with (acute) exacerbation; Z68.42 Body mass index [BMI] 45.0-49.9, adult; J44.0 Chronic obstructive pulmonary disease with (acute) lower respiratory infection; E66.01 Morbid (severe) obesity due to excess calories; E87.6 Hypokalemia; F32.A Depression, unspecified; G89.29 Other chronic pain; M54.9 Dorsalgia, unspecified; E87.8 Other disorders of electrolyte and fluid balance, not elsewhere classified; D53.9 Nutritional anemia, unspecified; I11.0 Hypertensive heart disease with heart failure; R73.9 Hyperglycemia, unspecified; F41.1 Generalized anxiety disorder; Z87.891 Personal history of nicotine dependence; Z82.49 Family history of ischemic heart disease and other diseases of the circulatory system; Z83.3 Family history of diabetes mellitus; Z83.6 Family history of other diseases of the respiratory system

== ENCOUNTER 2024-10-14 14:35 | Inpatient (IN) | payer OTHER ==
[~2024-10-14] VITALS: Ht 160 cm; Wt 123.4 kg
[~2024-10-14 14:35] MED LIST changes: +DOXYCYCLINE HY100 M3 PO; +DULE1ARO1 INH; +FLORASTOR250 MG PO; +FUROSEMIDE40 MG PO; +LASIX20 MG PO; +LEVOFLOXACIN750 M2 PO; +SUBOXONE 8 MG-1 EACH BC; +TOPROL XL25 MG PO; +VENT7GM INH; +VENTOLIN 02.5 MG/3 M INH; +VIBRAMYCIN HYC100 MG PO; +VITAMIN D3125 MC1 PO
[2024-10-14 14:38] VITALS: BP 111/63
[2024-10-14 14:56] LABS: ABG O2 SATURATION 96.3 % (94.0-98.0); ARTERIAL BLOOD GAS PH 7.282 (7.350-7.450); ARTERIAL BLOOD GAS PO2 97.8 mmHg (83.0-108.0)
[2024-10-14] MEDS ORDERED: Dexamethasone Sodium Phospha 20 MG/5 ML VIAL IV ONE (15:05)
[2024-10-14 15:10] LABS: BASO % 0.4 % (0.0-1.0); EOS # 0.3 10*3/uL (0.0-0.4); EOS % 3.5 % (1.0-4.0); HEMATOCRIT 34.9 % (37.0-47.0); MEAN CELL VOLUME 100.9 fl (81.0-99.0); MEAN CORPUSCULAR HGB 30.6 pg (27.0-31.0); MEAN CORPUSCULAR HGB CONC 30.4 g/dl (33.0-37.0); MEAN PLATELET VOLUME 8.7 fl (9.6-12.3); MONO # 0.4 10*3/uL (0.1-1.0); MONO % 4.9 % (3.0-9.0); NEUT # 7.4 10*3/uL (2.3-7.9); NEUT % 82.1 % (47.0-73.0); PLATELET COUNT AUTOMATED 212 10*3/uL (130-400); RED BLOOD COUNT 3.46 10*6/uL (4.10-5.10); RED CELL DISTRI WIDTH 13.6 % (0-14.5)
[2024-10-14] MEDS ORDERED: Albuterol Sulf/Ipratropium 3 ML VIAL NEB SCH ×2 (15:15→18:50)
[2024-10-14 15:31] LABS: ALKALINE PHOSPHATASE 81 U/L (46-116); BUN 12 mg/dl (9-23); CHLORIDE 94 mmol/L (98-107); CPK 36 U/L (34-171); LDH 227 U/L (120-246); LIPASE 31 U/L (12-53); SGPT/ALT 19 U/L (5-49); TOTAL PROTEIN 7.3 gm/dL (6.0-8.0)
[2024-10-14] MEDS ORDERED: ASPIRIN, CHEWABLE 81 MG TAB PO ONE (15:40)
[2024-10-14] MEDS ORDERED: HEPARIN SODIUM 250 ML IV SCH (15:45)
[2024-10-14] MEDS ORDERED: IOHEXOL 350 MG/ML 100 ML VIAL IV ONE (15:50)
[2024-10-14] MEDS ORDERED: SODIUM CHLORIDE 0.9% 100 ML BAG IV ONE (15:50)
[2024-10-14 15:55] LABS: BILIRUBIN Negative (Negative); BLOOD Negative (Negative); CLARITY Cloudy (Clear); COLOR Dark Yellow (Yellow); GLUCOSE Negative (Negative); KETONE Negative (Negative); LEUKO ESTERASE 1+ (Negative); NITRITE Negative (Negative); PH 5.5 (4.5-8.0)
[2024-10-14 16:04] LABS: EPITHELIAL CELLS TNTC; MUCOUS 2+
[2024-10-14 16:05] LABS: BACTERIA TRACE; WBC 16-20 wbc/hpf (0-5)
[2024-10-14 16:57] VITALS: BP 114/63
[2024-10-14] MEDS ORDERED: Ceftriaxone Sodium 1 GM/10 ML SYR IV ONE (17:20)
[2024-10-14] MEDS ORDERED: AZITHROMYCIN 250 ML IV ONE (17:25)
[2024-10-14] MEDS ORDERED: ACETAMINOPHEN 650 MG SUPP R PRN (17:45)
[2024-10-14] MEDS ORDERED: ACETAMINOPHEN 325 MG TAB PO PRN (17:45)
[2024-10-14] MEDS ORDERED: BISACODYL 10 MG SUPP R PRN (17:45)
[2024-10-14] MEDS ORDERED: Ondansetron Hydrochloride 4 MG/2 ML VIAL IV PRN (17:45)
[2024-10-14] MEDS ORDERED: Magnesium Hydroxide 30 ML UDC PO PRN (17:45)
[2024-10-14] MEDS ORDERED: BISACODYL 5 MG TAB PO PRN (17:45)
[2024-10-14] MEDS ORDERED: FUROSEMIDE 40 MG/4 ML VIAL IV ONE (18:50)
[2024-10-14] MEDS ORDERED: Vancomycin Hydrochloride 1,000 MG in SODIUM CHLORIDE 0.9% 250 ML IV SCH (18:50)
[2024-10-14 18:51] VITALS: BP 104/55
[2024-10-14] MEDS ORDERED: LEVOFLOXACIN 750 MG TAB PO SCH (20:00)
[2024-10-14] MEDS ORDERED: VANCOMYCIN/WATER FOR INJ (PEG) 300 ML IV SCH (20:00)
[2024-10-14] MEDS ORDERED: GUAIFENESIN 600 MG TAB ER PO SCH (22:00)
[2024-10-14] MEDS ORDERED: Metoprolol Tartrate 25 MG TAB PO SCH (22:00)
[2024-10-14 23:00] VITALS: BP 107/64; BP 133/82
[2024-10-15] MEDS ORDERED: QUETIAPINE FUMARATE 25 MG TAB PO SCH (01:30)
[2024-10-15] MEDS ORDERED: Albuterol Sulf/Ipratropium 3 ML VIAL NEB SCH (01:40)
[2024-10-15] MEDS ORDERED: BUDESONIDE 0.5 MG AMP NEB SCH (01:40)
[2024-10-15 06:28] LABS: HEMATOCRIT 29.4 % (37.0-47.0); MEAN CORPUSCULAR HGB 30.6 pg (27.0-31.0); MEAN PLATELET VOLUME 9.4 fl (9.6-12.3); MONO # 0.1 10*3/uL (0.1-1.0); NEUT # 4.2 10*3/uL (2.3-7.9); PLATELET COUNT AUTOMATED 180 10*3/uL (130-400); RED BLOOD COUNT 2.97 10*6/uL (4.10-5.10); RED CELL DISTRI WIDTH 13.3 % (0-14.5); WHITE BLOOD COUNT 4.8 10*3/uL (4.8-10.8)
[2024-10-15 06:45] LABS: BUN 12 mg/dl (9-23); CHLORIDE 92 mmol/L (98-107); POTASSIUM 3.8 mmol/L (3.4-5.1)
[2024-10-15 08:00] VITALS: BP 109/52
[2024-10-15] MEDS ORDERED: ATORVASTATIN CALCIUM 40 MG TABLET PO SCH (10:00)
[2024-10-15] MEDS ORDERED: Budesonide/Formoterol Fumarate 160/4.5 inhaler INH SCH (10:00)
[2024-10-15] MEDS ORDERED: ASPIRIN, CHEWABLE 81 MG TAB PO SCH (10:00)
[2024-10-15] MEDS ORDERED: FUROSEMIDE 40 MG/4 ML VIAL IV SCH (10:00)
[2024-10-15] MEDS ORDERED: POTASSIUM CHLORIDE 20 MEQ TAB PO SCH (10:00)
[2024-10-15] MEDS ORDERED: Lactobacillus Acidophilus/LA 1 TAB TAB PO SCH (10:00)
[2024-10-15] MEDS ORDERED: TIOTROPIUM BROMIDE 18 MCG CAPSULES INHALER INH SCH (10:00)
[2024-10-15] MEDS ORDERED: SACCHAROMYCES BOULARDII 250 MG PO SCH (10:00)
[2024-10-15 10:20] VITALS: BP 100/60
[2024-10-15 12:00] VITALS: BP 141/48
[2024-10-15] MEDS ORDERED: Albuterol Sulf/Ipratropium 3 ML VIAL NEB ONE (13:30)
[2024-10-15 16:00] VITALS: BP 106/54
[2024-10-15 20:40] VITALS: BP 125/56
[2024-10-15] MEDS ORDERED: BUPRENORPHINE HCL/NALOXONE 8 MG-2 MG SL TABLET SL SCH (22:00)
[2024-10-16] VITALS: BP 124/65
[2024-10-16 05:26] LABS: BUN 18 mg/dl (9-23); CHLORIDE 95 mmol/L (98-107); POTASSIUM 3.9 mmol/L (3.4-5.1)
[2024-10-16 06:06] LABS: BASO % 0.1 % (0.0-1.0); EOS % 0.2 % (1.0-4.0); HEMATOCRIT 28.3 % (37.0-47.0); MEAN CELL VOLUME 100.4 fl (81.0-99.0); MEAN CORPUSCULAR HGB 30.5 pg (27.0-31.0); MEAN CORPUSCULAR HGB CONC 30.4 g/dl (33.0-37.0); MEAN PLATELET VOLUME 9.6 fl (9.6-12.3); MONO # 0.7 10*3/uL (0.1-1.0); NEUT # 7.4 10*3/uL (2.3-7.9); NEUT % 80.7 % (47.0-73.0); PLATELET COUNT AUTOMATED 194 10*3/uL (130-400); RED BLOOD COUNT 2.82 10*6/uL (4.10-5.10); RED CELL DISTRI WIDTH 13.5 % (0-14.5); WHITE BLOOD COUNT 9.2 10*3/uL (4.8-10.8)
[2024-10-16 08:00] VITALS: BP 126/48
[2024-10-16 12:00] VITALS: BP 100/54
[2024-10-16 16:00] VITALS: BP 141/96; BP 97/58
[2024-10-16 20:00] VITALS: BP 91/44
[2024-10-16 20:15] VITALS: BP 120/54
[2024-10-17] VITALS: BP 98/50
[2024-10-17 05:51] LABS: BUN 16 mg/dl (9-23); CHLORIDE 94 mmol/L (98-107); POTASSIUM 3.6 mmol/L (3.4-5.1)
[2024-10-17 06:08] LABS: BASO % 0.5 % (0.0-1.0); EOS # 0.3 10*3/uL (0.0-0.4); EOS % 4.1 % (1.0-4.0); HEMATOCRIT 29.6 % (37.0-47.0); MEAN CELL VOLUME 102.1 fl (81.0-99.0); MEAN CORPUSCULAR HGB CONC 30.4 g/dl (33.0-37.0); MEAN PLATELET VOLUME 9.2 fl (9.6-12.3); MONO # 0.6 10*3/uL (0.1-1.0); MONO % 7.6 % (3.0-9.0); NEUT # 5.5 10*3/uL (2.3-7.9); NEUT % 65.5 % (47.0-73.0); PLATELET COUNT AUTOMATED 218 10*3/uL (130-400); RED CELL DISTRI WIDTH 13.7 % (0-14.5); WHITE BLOOD COUNT 8.4 10*3/uL (4.8-10.8)
[2024-10-17 07:50] VITALS: BP 98/50
[2024-10-17 12:00] VITALS: BP 122/71
[2024-10-17] MEDS ORDERED: Technetium Tc 99M Tetrofosmi 0.23 MG KIT IJ SCH (13:25)
[2024-10-17 16:00] VITALS: BP 96/45
[2024-10-17 20:00] VITALS: BP 94/71
[2024-10-18] VITALS (8 sets, daily range): BP systolic 82–115; BP diastolic 39–75
[2024-10-18] MEDS ORDERED: Ketorolac Tromethamine 15 MG/ML VIAL IV ONE ×2 (00:45→08:25)
[2024-10-18 04:55] LABS: ABG O2 SATURATION 94.5 % (94.0-98.0); ARTERIAL BLOOD GAS PH 7.402 (7.350-7.450); ARTERIAL BLOOD GAS PO2 68.4 mmHg (83.0-108.0)
[2024-10-18 05:38] LABS: BILIRUBIN Negative (Negative); BLOOD Negative (Negative); CLARITY Clear (Clear); COLOR Yellow (Yellow); GLUCOSE Negative (Negative); KETONE Trace (Negative); LEUKO ESTERASE 1+ (Negative); NITRITE Negative (Negative); SPECIFIC GRAVITY >= 1.030 (1.001-1.030)
[2024-10-18 05:44] LABS: BACTERIA 1+; MUCOUS 1+; RBC 0-2 rbc/hpf (0-2); WBC 16-20 wbc/hpf (0-5)
[2024-10-18 05:46] LABS: BUN 15 mg/dl (9-23); CHLORIDE 93 mmol/L (98-107); POTASSIUM 3.6 mmol/L (3.4-5.1)
[2024-10-18] MEDS ORDERED: Regadenoson 0.4 MG/5 ML SYR IV ONE (06:32)
[2024-10-18 07:15] LABS: BASO % 0.3 % (0.0-1.0); EOS # 0.4 10*3/uL (0.0-0.4); EOS % 3.2 % (1.0-4.0); MEAN CELL VOLUME 99.7 fl (81.0-99.0); MEAN CORPUSCULAR HGB 30.5 pg (27.0-31.0); MEAN CORPUSCULAR HGB CONC 30.6 g/dl (33.0-37.0); MEAN PLATELET VOLUME 9.3 fl (9.6-12.3); MONO # 0.7 10*3/uL (0.1-1.0); MONO % 5.1 % (3.0-9.0); NEUT # 10.7 10*3/uL (2.3-7.9); NEUT % 80.7 % (47.0-73.0); PLATELET COUNT AUTOMATED 240 10*3/uL (130-400); RED BLOOD COUNT 3.31 10*6/uL (4.10-5.10); RED CELL DISTRI WIDTH 14.1 % (0-14.5); WHITE BLOOD COUNT 13.2 10*3/uL (4.8-10.8)
[2024-10-18] MEDS ORDERED: MORPHINE Sulfate 2 MG/ML SYR IV ONE (08:10)
[2024-10-18] MEDS ORDERED: FUROSEMIDE 40 MG TAB PO SCH (10:00)
[2024-10-18] MEDS ORDERED: Enoxaparin Sodium 40 MG/0.4 ML SYR SC SCH (14:30)
[2024-10-18] MEDS ORDERED: SODIUM CHLORIDE 0.9% 500 ML IV ONE (15:50)
[2024-10-19] VITALS: BP 94/43
[2024-10-19 06:15] LABS: BASO % 0.2 % (0.0-1.0); EOS # 0.8 10*3/uL (0.0-0.4); EOS % 6.5 % (1.0-4.0); HEMATOCRIT 28.8 % (37.0-47.0); MEAN CELL VOLUME 100.3 fl (81.0-99.0); MEAN CORPUSCULAR HGB 30.3 pg (27.0-31.0); MEAN CORPUSCULAR HGB CONC 30.2 g/dl (33.0-37.0); MEAN PLATELET VOLUME 8.8 fl (9.6-12.3); MONO # 0.7 10*3/uL (0.1-1.0); MONO % 5.6 % (3.0-9.0); NEUT # 9.4 10*3/uL (2.3-7.9); PLATELET COUNT AUTOMATED 191 10*3/uL (130-400); RED BLOOD COUNT 2.87 10*6/uL (4.10-5.10)
[2024-10-19 07:02] LABS: BUN 12 mg/dl (9-23); CHLORIDE 93 mmol/L (98-107); POTASSIUM 3.4 mmol/L (3.4-5.1)
[2024-10-19 08:00] VITALS: BP 84/65
[2024-10-19 09:00] VITALS: BP 100/50
[2024-10-19 12:00] VITALS: BP 130/61
[2024-10-19 16:00] VITALS: BP 94/68
[2024-10-19] MEDS ORDERED: Phenazopyridine Hydrochlorid2 100 MG TAB PO SCH (18:00)
[2024-10-19 20:00] VITALS: BP 170/63
[2024-10-20] VITALS: BP 120/69
[2024-10-20 06:52] LABS: BASO % 0.1 % (0.0-1.0); EOS # 0.9 10*3/uL (0.0-0.4); EOS % 6.6 % (1.0-4.0); HEMATOCRIT 30.2 % (37.0-47.0); MEAN CELL VOLUME 101.3 fl (81.0-99.0); MEAN CORPUSCULAR HGB 30.9 pg (27.0-31.0); MEAN CORPUSCULAR HGB CONC 30.5 g/dl (33.0-37.0); MEAN PLATELET VOLUME 9.1 fl (9.6-12.3); MONO # 0.7 10*3/uL (0.1-1.0); NEUT # 11.4 10*3/uL (2.3-7.9); NEUT % 80.7 % (47.0-73.0); PLATELET COUNT AUTOMATED 221 10*3/uL (130-400); RED BLOOD COUNT 2.98 10*6/uL (4.10-5.10); RED CELL DISTRI WIDTH 13.9 % (0-14.5); WHITE BLOOD COUNT 14.1 10*3/uL (4.8-10.8)
[2024-10-20 06:55] LABS: BUN 10 mg/dl (9-23)
[2024-10-20 08:00] VITALS: BP 119/64
[2024-10-20] MEDS ORDERED: methylPREDNISolone sod succ 125 MG VIAL IV SCH (10:00)
[2024-10-20] MEDS ORDERED: Cyclobenzaprine Hydrochlorid 10 MG TAB PO SCH (10:00)
[2024-10-20 12:00] VITALS: BP 114/52
[2024-10-20] MEDS ORDERED: VANCOMYCIN/WATER FOR INJ (PEG) 400 ML IV SCH (14:00)
[2024-10-20 16:00] VITALS: BP 90/48
[2024-10-20] MEDS ORDERED: Midodrine Hydrochloride 5 MG TAB PO ONE (16:15)
[2024-10-20 20:00] VITALS: BP 106/52
[2024-10-21] VITALS: BP 119/59
[2024-10-21 08:00] VITALS: BP 109/60
[2024-10-21 12:00] VITALS: BP 123/52
[2024-10-21 16:00] VITALS: BP 113/50; BP 131/88
[2024-10-21 20:00] VITALS: BP 137/71
[2024-10-22] VITALS: BP 149/73
[2024-10-22 08:00] VITALS: BP 115/57
[2024-10-22] MEDS ORDERED: methylPREDNISolone sod succ 40 MG VIAL IV SCH (10:00)
[2024-10-22] MEDS ORDERED: CYCLOBENZAPRINE10 MG PO (11:36)
[2024-10-22] MEDS ORDERED: ATORVASTATIN CA40 M1 PO (11:36)
[2024-10-22] MEDS ORDERED: LOPRESSOR25 MG PO (11:36)
[2024-10-22] MEDS ORDERED: PREDNISONE10 MG PO (11:36)
[2024-10-22] MEDS ORDERED: FUROSEMIDE40 MG PO (11:36)
[2024-10-22] MEDS ORDERED: ASPIRIN CHILDRE81 MG PO (11:36)
[2024-10-22 12:00] VITALS: BP 116/55
[2024-10-22 16:00] VITALS: BP 151/61
== END 2024-10-22 18:50 | disposition home or self-care (01) | DRG 871 ==
LOC: ED 14:35 → EDHOLD 15:22 → 4E 15:22
PROVIDERS: Emergency Medicine; Internal Medicine; Student in an Organized Health Care Education/Training Program; ADMIT Internal Medicine; ATTEND Internal Medicine
PROC: 5A09357 Assistance with Respiratory Ventilation, Less than 24 Consecutive Hours, Continuous Positive Airway Pressure (ICD-10-PCS; principal; 2024-10-14)
PROC: 5A0935A Assistance with Respiratory Ventilation, Less than 24 Consecutive Hours, High Flow/Velocity Cannula (ICD-10-PCS; 2024-10-14)
PROC: 5A09357 Assistance with Respiratory Ventilation, Less than 24 Consecutive Hours, Continuous Positive Airway Pressure (ICD-10-PCS; 2024-10-15)
PROC: 5A0935A Assistance with Respiratory Ventilation, Less than 24 Consecutive Hours, High Flow/Velocity Cannula (ICD-10-PCS; 2024-10-15)
PROC: 5A09357 Assistance with Respiratory Ventilation, Less than 24 Consecutive Hours, Continuous Positive Airway Pressure (ICD-10-PCS; 2024-10-16)
PROC: 5A09357 Assistance with Respiratory Ventilation, Less than 24 Consecutive Hours, Continuous Positive Airway Pressure (ICD-10-PCS; 2024-10-17)
PROC: 5A0935A Assistance with Respiratory Ventilation, Less than 24 Consecutive Hours, High Flow/Velocity Cannula (ICD-10-PCS; 2024-10-18)
PROC: 4A02XM4 Measurement of Cardiac Total Activity, External Approach (ICD-10-PCS; 2024-10-18)
PROC: 3E073KZ Introduction of Other Diagnostic Substance into Coronary Artery, Percutaneous Approach (ICD-10-PCS; 2024-10-18)
PROC: 5A09357 Assistance with Respiratory Ventilation, Less than 24 Consecutive Hours, Continuous Positive Airway Pressure (ICD-10-PCS; 2024-10-19)
PROC: 5A0935A Assistance with Respiratory Ventilation, Less than 24 Consecutive Hours, High Flow/Velocity Cannula (ICD-10-PCS; 2024-10-19)
PROC: 5A0945A Assistance with Respiratory Ventilation, 24-96 Consecutive Hours, High Flow/Velocity Cannula (ICD-10-PCS; 2024-10-20)
PROC: 5A09357 Assistance with Respiratory Ventilation, Less than 24 Consecutive Hours, Continuous Positive Airway Pressure (ICD-10-PCS; 2024-10-20)
DX: A41.9 Sepsis, unspecified organism (principal); I21.A1 Myocardial infarction type 2; I50.33 Acute on chronic diastolic (congestive) heart failure; J15.212 Pneumonia due to Methicillin resistant Staphylococcus aureus; J96.22 Acute and chronic respiratory failure with hypercapnia; J96.21 Acute and chronic respiratory failure with hypoxia; E87.29 Other acidosis; Z68.42 Body mass index [BMI] 45.0-49.9, adult; J44.0 Chronic obstructive pulmonary disease with (acute) lower respiratory infection; F33.9 Major depressive disorder, recurrent, unspecified; J44.1 Chronic obstructive pulmonary disease with (acute) exacerbation; Z20.822 Contact with and (suspected) exposure to COVID-19; R65.20 Severe sepsis without septic shock; R73.9 Hyperglycemia, unspecified; F41.9 Anxiety disorder, unspecified; M54.9 Dorsalgia, unspecified; G89.29 Other chronic pain; I11.0 Hypertensive heart disease with heart failure; D53.9 Nutritional anemia, unspecified; E66.01 Morbid (severe) obesity due to excess calories; Z87.891 Personal history of nicotine dependence; Z82.49 Family history of ischemic heart disease and other diseases of the circulatory system; Z82.5 Family history of asthma and other chronic lower respiratory diseases; Z79.899 Other long term (current) drug therapy; Z79.51 Long term (current) use of inhaled steroids